=== PATIENT | male | born 1980 | race Caucasian/White ===

== ENCOUNTER 2017-07-22 05:19 | Emergency (ER) | payer SELFPAY ==
[~2017-07-22] VITALS: Ht 175.3 cm; Wt 73.0 kg
[2017-07-22 05:24] VITALS: BP 124/65
[2017-07-22] MEDS ORDERED: PRED1TABL PO (05:30)
[2017-07-22] MEDS ORDERED: IBUP1TAB7 PO (05:30)
[2017-07-22] MEDS ORDERED: IBUPROFEN 800 MG TAB PO ONE (06:15)
--- NOTE | 2017-07-22 07:51 | REP ---
Left tibia-fibula four views : There is no fracture or dislocation. Mineralization and joint spaces are normal. There are no calcifications or foreign bodies. Impression: Negative left tibia-fibula . Signed by Fran Gamez MD 07/22/2017 07:43 A
--- NOTE | 2017-07-22 07:51 | REP ---
Left knee five views : There is no fracture or dislocation. Mineralization and joint spaces are normal. There are no calcifications or foreign bodies. Impression: Negative left knee . Signed by Fran Gamez MD 07/22/2017 07:43 A
[2017-07-22] MEDS ORDERED: NORCOTAB PO (07:52)
== END 2017-07-22 07:54 | disposition home or self-care (01) ==
LOC: M ED 05:19
DX: S83.412A Sprain of medial collateral ligament of left knee, initial encounter (principal); W01.198A Fall on same level from slipping, tripping and stumbling with subsequent striking against other object, initial encounter; X50.9XXA Other and unspecified overexertion or strenuous movements or postures, initial encounter; Y92.830 Public park as the place of occurrence of the external cause; Y93.62 Activity, american flag or touch football; Y99.8 Other external cause status; F17.210 Nicotine dependence, cigarettes, uncomplicated; Z79.52 Long term (current) use of systemic steroids